=== PATIENT | male | born 1975 | race Hispanic/Latino ===

== ENCOUNTER 2018-08-04 07:58 | Outpatient (CLI) | payer OTHER ==
[2018-08-04] MEDS ORDERED: Lidocaine 1% (PF) 30 ML VIAL ONE (09:05)
[2018-08-04] MEDS ORDERED: EPINEPHrine 1 MG/ML AMP ONE (09:05)
[2018-08-04] MEDS ORDERED: Gadobenate Dimeglumine 529 MG/1 ML (20ML VIAL) ONE (09:05)
[2018-08-04] MEDS ORDERED: Iopamidol 300 61% 50 ML VIAL FS ONE (09:05)
--- NOTE | 2018-08-04 12:57 | MRI ---
MR ARTHROGRAM OF THE LEFT SHOULDER: INDICATION: Concern for rotator cuff tear. TECHNIQUE: Multiplanar multisequence MR images were obtained of the left shoulder following intraarticular admin istration of a dilute Gadolinium solution. Please see the separately dictated left shoulder arthrogr am for details concerning the injection technique. FINDINGS: There is a partial thickness bursal surface tear involving the anterior to mid supraspinatus at the f ootprint involving 50% of tendon thickness. There is severe tendinosis of the supraspinatus. No ful l-thickness tear is evident. The infraspinatus, subscapularis, teres minor are intact. No muscular atrophy is evident. There is fluid distending the subacromial, subdeltoid bursa consistent with siu ges of bursitis. There is mild AC joint osteoarthrosis. Glenohumeral articular surface is normal ap pearing. There is abnormal linear Gadolinium signal collecting into the superior glenoid labrum exte nding posterior to the biceps anchor consistent with a type II SLAP tear. This extends from approxim ately the 2 o'clock position through the 11 o'clock position. There is no evidence of os acromiale. There is a type II acromion. The anterior inferior glenohumeral labral ligamentous complex is mickey l. The glenohumeral articular surface is normal-appearing. IMPRESSION: 1. Bursal surface partial thickness tear of the anterior to mid supraspinatus at the footprint invol ving 50% of the tendon thickness. There is prominent tendinosis of the supraspinatus. 2. Moderate subacromial subdeltoid bursitis. 3. Type II superior labrum anterior to posterior tear. 4. Mild acromioclavicular joint osteoarthrosis. POS: [facility]
--- NOTE | 2018-08-04 12:59 | RAD ---
LEFT SHOULDER ARTHROGRAM: Indication: Left shoulder pain. Concern for rotator cuff tear. Technique: Informed consent was obtained. Pre procedure purse maker images were performed of the left shoulder. The le ft shoulder was prepped and draped in the usual sterile fashion after a time-out was performed. Buffered 1% Lidocaine was administered to the overlying subcutaneous tissues. Under fluoroscopic guid ance, a 22 gauge spinal needle was guided down into the glenohumeral joint. I personally injected the glenohumeral joint with a dilute gadolinium solution. The needle was removed. The patient tolerated the injection without difficulty. Total fluoroscopic type was 0.5 minutes. Total exposure was 28.8 mG y*cm^2. FINDINGS: Pre procedure purse maker images demonstrate mild AC joint osseous arthrosis. The visualized left lung is c lear. No acute fracture or subluxation is noted. IMPRESSION: Successful left shoulder arthrogram. POS: [facility]
== END 2018-08-04 07:59 | disposition home or self-care (01) ==
LOC: RAD 07:58
PROVIDERS: ATTEND Orthopaedic Surgery
DX: M25.512 Pain in left shoulder (principal); M75.102 Unspecified rotator cuff tear or rupture of left shoulder, not specified as traumatic; M75.52 Bursitis of left shoulder; M19.012 Primary osteoarthritis, left shoulder
CPT/HCPCS: 23350; A9579; J0171; J2001; J7050

== ENCOUNTER 2018-08-17 13:41 | Outpatient (CLI) | payer OTHER ==
[2018-08-17 14:41] LABS: #Basophils 0.1 thou/uL (0.0-0.2); #Eosinphils 0.4 thou/uL (0.0-0.7); #Lymphocytes 1.9 thou/uL (1.20-3.40); #Monocytes 0.5 thou/uL (0.11-0.59); #Neutrophils 5.4 thou/uL (1.40-6.50); %Basophils 0.8 % (0.0-1.0); %Eosinophils 4.7 % (0.0-10.0); %Lymphocytes 23.1 % (21.0-51.0); %Monocytes 5.8 % (0.0-10.0); %Neutrophils 65.5 % (42.0-75.0); Hemoglobin 14.3 g/dL (14.0-18.0); Mean Corpuscular HGB CONC 34.4 g/dL (32.0-36.0); Mean Corpuscular Hemoglobin 30.8 pg (27.0-31.0); Mean Corpuscular Volume 89.6 fL (78.0-98.0); Mean Platelet Volume 8.2 fL (7.4-10.4); Platelet Count 204 thou/uL (130-400); RBC Distribution Width 11.4 % (11.5-14.5); Red Blood Cell (RBC) Count 4.63 mill/uL (4.70-6.10); White Blood Cell (WBC) Count 8.2 thou/uL (4.8-10.8)
[2018-08-17 15:01] LABS: Anion Gap 10 mmol/L (10-20); BUN (Urea Nitrogen) 22 mg/dL (8.9-20.6); Calc. Creatinine Clearance 0 mL/min (70-130); Calcium 9.8 mg/dL (7.8-10.44); Carbon Dioxide 27 mmol/L (22-29); Chloride 101 mmol/L (98-107); Estimated GFR-MDRD 78; Glucose 101 mg/dL (70-105); Potassium 4.4 mmol/L (3.5-5.1); Sodium 134 mmol/L (136-145)
== END 2018-08-17 13:42 | disposition home or self-care (01) ==
LOC: LABBT 13:41
PROVIDERS: ATTEND Orthopaedic Surgery
DX: Z01.818 Encounter for other preprocedural examination (principal); S43.402A Unspecified sprain of left shoulder joint, initial encounter
CPT/HCPCS: 80048; 85025; 93005; 93010

== ENCOUNTER 2018-08-19 09:03 | Day surgery (SDC) | payer OTHER ==
[2018-08-17 14:25] VITALS: BMI 26.6
[2018-08-19] MEDS ORDERED: Midazolam HCl 2 mg/2 ml Vial ONE (10:14)
[2018-08-19] MEDS ORDERED: Fentanyl 100 MCG/2 ML VIAL ONE (10:14)
[2018-08-19] MEDS ORDERED: CEFAZOLIN/Water 2 GM/20 ML SYRINGE ONE (10:24)
[2018-08-19] MEDS ORDERED: Zolpidem Tartrate 5 MG TAB PO PRN (10:57)
[2018-08-19] MEDS ORDERED: Ondansetron PF 4 MG/2 ML Vial IVP PRN (10:57)
[2018-08-19] MEDS ORDERED: traMADol HCl 50 MG TAB PO PRN ×2 (10:57)
[2018-08-19] MEDS ORDERED: HYDROcodone/Acetaminophen 5/325 mg Tablet PO PRN ×2 (10:57)
[2018-08-19] MEDS ORDERED: Ketorolac Tromethamine 30 MG/ML VIAL IVP PRN (10:57)
[2018-08-19] MEDS ORDERED: Promethazine HCl 25 MG/ML VIAL IM PRN (10:57)
[2018-08-19] MEDS ORDERED: Ropivacaine 0.2% 550 ML 550 ML NERVE BLCK SCH (10:57)
[2018-08-19] MEDS ORDERED: Fentanyl 100 MCG/2 ML VIAL IV PRN (10:58)
[2018-08-19] MEDS ORDERED: Lidocaine 2% Jelly 5 ML TUBE ONE (10:59)
[2018-08-19] MEDS ORDERED: Bupivacaine/Epinephrine 0.25% 30 ML VIAL ONE (11:09)
[2018-08-19] MEDS ORDERED: diphenhydrAMINE 50 MG/ML VIAL ONE ×2 (11:35→13:02)
[2018-08-19] MEDS ORDERED: Ropivacaine 0.2% HCl/PF (40 MG/20 ML VIAL) ONE (13:01)
[2018-08-19] MEDS ORDERED: Ropivacaine 0.5% HCl/PF (150 MG/30 ML VIAL) ONE (13:01)
[2018-08-19] MEDS ORDERED: PROPOFOL 200 MG/20 ML VIAL ONE (13:02)
[2018-08-19] MEDS ORDERED: Glycopyrrolate 0.2 MG/ML 5 ML SYRINGE ONE (13:02)
[2018-08-19] MEDS ORDERED: ePHEDrine/0.9% NaCl/PF SYRINGE 50 mg/10 ml ONE (13:02)
[2018-08-19] MEDS ORDERED: Ondansetron PF 4 MG/2 ML Vial ONE (13:02)
[2018-08-19] MEDS ORDERED: Dexamethasone 20 MG/5 ML VIAL ONE (13:02)
--- NOTE | 2018-08-19 13:44 | OP ---
DATE OF PROCEDURE: 08/19/2018 PREOPERATIVE DIAGNOSES: Left shoulder degenerative SLAP tear with biceps instability and pain and a partial thickness bursal-sided rotator cuff tear. POSTOPERATIVE DIAGNOSES: 1. Left shoulder impingement. 2. Small full thickness rotator cuff tear of the very leading edge of supraspinatus. 3. Degenerative SLAP tear leading to biceps instability. PROCEDURES: 1. Left shoulder arthroscopy followed by arthroscopic subacromial decompression and arthroscopic rot ator cuff repair. 2. Open biceps tenodesis. SURGEON: Ben Adler M.D. SOLE TACKER: Kilo Hernandez PA-C. BLOOD LOSS: 30 mL COMPLICATIONS: None. IMPLANTS: One double-loaded 5.5 titanium rotator cuff anchor and one 7 x 23 BioComposite Bio-Tenodes is screw. These were both Arthrex devices. INDICATIONS: This is a 42-year-old male who has been having problems for quite some time with his oulder. He has failed nonoperative treatment and at this time opted to have surgery. DESCRIPTION OF PROCEDURE: After all appropriate consent forms were explained and signed, he was take n back to the operating room and at this time was given a general anesthetic. Once the level of anes thesia was appropriate, the patient was rolled into the right lateral decubitus position with all bon y prominences well padded. Axillary roll was placed underneath the right axilla. Braxton bag was infla kvng to hold him in this position. The arm was then taken through full range of motion and suspended with 10 pounds in standard arthroscopic fashion. The left shoulder and upper extremity were then pre pped and draped in the standard surgical fashion. Bony anatomic landmarks were then drawn out and talley bacromial space was infiltrated with Marcaine with epinephrine. Posterior portal was established and scope was placed into the glenohumeral joint. An anterior working portal was made using a needle lo calization technique. Diagnostic arthroscopy commenced in the glenohumeral joint. The articular alanis face of the glenoid and the humeral head were in good condition. The inferior and anterior and poste rior labrum were in good condition. There was a degenerative SLAP tear with some significant degener ation at the biceps insertion onto the superior labrum. There was a significant amount of injected t issue just superior to this and this continued superior to the biceps tendon as it exited the shoulde r. Subscap was in good condition. In this area, there appeared to be an abnormality in the very beg inning of the supraspinatus, but otherwise rotator cuff tear appeared to be in good condition. At th is time, a green cannula was placed anteriorly. An 18 gauge needle was used to place a stitch throug h the biceps tendon and the biceps was removed off the superior labrum using the surface energy. Thi s area was debrided and at this time, we repositioned the scope into the subacromial space. Lateral working portal was made and at this time, a combination of the shaver and the surface energy probe wa s used to debride the bursa off the top of the rotator cuff as well as remove the soft tissue off the undersurface of the acromion and taking down the leading edge. The area of the CA ligament was foun d to be kind of rock hard and almost bony in nature. This was taken down and debrided with shaver. Small bony decompression was performed with the shaver only. There were some adhesions, especially a long the posterior cuff and some along the deltoid gutter. These were freed up, so we could get good evaluation of the entire rotator cuff, taking it through full range of motion. The majority of the rotator cuff appeared to be in good condition though. There was a significant tear noted at the very beginning of supraspinatus and after debriding this area and probing it, it was found to be full thi ckness. At this time, a needle was used directly over top of this area so that we could place a doub le-loaded 5.5 cuff anchor into the tuberosity. Through the green cannula laterally, the sutures were placed through the rotator cuff in simple fashion and tied. This was done with the Scorpion device. Once this was done, we turned our attention to our biceps tenodesis. Scope was removed and the maira ulder was drained. A 15 blade was used to incise down through skin only next to where the suture cam e out of the skin. The Bovie was used to coagulate any brisk venous bleeding. We then opened the de ltoid fascia sharply and used finger dissection to dissect the deltoid in line with its fibers to get down to the underlying transverse humeral ligament. This was opened up in its entirety. All brisk venous bleeding was coagulated. Biceps tendon was pulled out into the wound and at this time, the te ndon was sutured and the intraarticular portion of the tendon was cut off. We then placed our guide pin, reamed with a 7 mm reamer to a depth of 25 and placed our 7 x 23 BioComposite Bio-Tenodesis scre w. We then tied our sutures over top of this, so the screw could not back out. At this time, we tho roughly irrigated and dried. We allowed our deltoid to close upon itself. Running Vicryl suture was used to close our deltoid fascia, 2-0 Vicryl and nylon sutures were used to close the skin as well a s the portals. Once this was done, a bulky sterile dressing was applied. He was awakened. He was t aken to the recovery room in stable condition. All counts were correct at the end of the case and he did receive preoperative IV antibiotics.
== END 2018-08-19 15:40 | disposition home or self-care (01) ==
LOC: SDC 09:03
PROVIDERS: ATTEND Orthopaedic Surgery
PROC: 0LS20ZZ Reposition Left Shoulder Tendon, Open Approach (ICD-10-PCS; principal; 2018-08-19)
PROC: 0RHK44Z Insertion of Internal Fixation Device into Left Shoulder Joint, Percutaneous Endoscopic Approach (ICD-10-PCS; principal; 2018-08-19)
PROC: 0LM24ZZ Reattachment of Left Shoulder Tendon, Percutaneous Endoscopic Approach (ICD-10-PCS; principal; 2018-08-19)
PROC: 0RNK4ZZ Release Left Shoulder Joint, Percutaneous Endoscopic Approach (ICD-10-PCS; principal; 2018-08-19)
DX: M75.122 Complete rotator cuff tear or rupture of left shoulder, not specified as traumatic (principal); S43.432A Superior glenoid labrum lesion of left shoulder, initial encounter; M75.52 Bursitis of left shoulder; M75.42 Impingement syndrome of left shoulder; I10 Essential (primary) hypertension; Z87.891 Personal history of nicotine dependence; Z79.82 Long term (current) use of aspirin; Z79.899 Other long term (current) drug therapy
CPT/HCPCS: A4306; C1713; J1200; J2250; J2795; J3010

== ENCOUNTER 2018-12-27 19:30 | Outpatient (CLI) | payer OTHER | END 2018-12-27 19:31 | disposition home or self-care (01) | LOC: SLEEPLAB 19:30 | PROVIDERS: ATTEND Family Medicine | DX: G47.33 Obstructive sleep apnea (adult) (pediatric) (principal); R53.83 Other fatigue; E66.9 Obesity, unspecified; R06.83 Snoring; F41.9 Anxiety disorder, unspecified; I10 Essential (primary) hypertension | CPT/HCPCS: 95810 ==

== ENCOUNTER 2019-02-01 12:58 | Outpatient (CLI) | payer OTHER ==
--- NOTE | 2019-02-01 13:46 | ULT ---
Exam: Bilateral renal ultrasound HISTORY: Chronic kidney disease, stage I COMPARISON: None FINDINGS: Right kidney: Normal cortical echotexture. No hydronephrosis. Right kidney measurements: 5.7 x 11.9 x 6.7 cm Left kidney: Normal cortical echotexture. No hydronephrosis 1.5 x 1.2 x 1.2 cm hypoechoic focus in th e mid left renal cortex. Lesion is too small to further characterize but may represent a slight the c omplex cyst. Left kidney measurements 5.9 x 6.1 x 11.8 cm Urinary bladder: Normal mucosa. IMPRESSION: 1. No hydronephrosis 2. Probable slightly complex cyst in the left kidney.
== END 2019-02-01 12:59 | disposition home or self-care (01) ==
LOC: SCSULT 12:58
PROVIDERS: ATTEND Internal Medicine Nephrology
DX: N18.1 Chronic kidney disease, stage 1 (principal)
CPT/HCPCS: 76770